=== PATIENT | female | born 2000 | race Caucasian/White ===

== ENCOUNTER 2020-06-29 07:07 | Emergency (ER) | payer SELFPAY ==
[~2020-06-29] VITALS: Ht 160 cm; Wt 70.5 kg
[2020-06-29 07:13] VITALS: BP 125/85
== END 2020-06-29 07:47 | disposition home or self-care (01) ==
LOC: ER 07:08
DX: R05 Cough (principal); Z20.822 Contact with and (suspected) exposure to COVID-19; R09.81 Nasal congestion; R06.02 Shortness of breath; J02.9 Acute pharyngitis, unspecified
CPT/HCPCS: 36415; 87635; 99283